=== PATIENT | female | born 1965 | race Caucasian/White ===

== ENCOUNTER 2025-07-04 05:45 | Observation (INO) | payer OTHER, MEDICAID ==
[2025-06-29 15:12] VITALS: BMI 24.1
[2025-07-04] MEDS ORDERED: Bupivacaine/Epinephrine 0.25% 30 ML VIAL ONE (06:35)
[2025-07-04] MEDS ORDERED: Thrombin 5000 UNITS/5 ML VIAL ONE (06:35)
[2025-07-04] MEDS ORDERED: PHENYLEPHRINE-NS 100 MCG/ML 10 ML SYRINGE ONE (06:44)
[2025-07-04] MEDS ORDERED: KETAMINE 100 MG/ML (5ML VIAL) ONE (06:44)
[2025-07-04] MEDS ORDERED: Glycopyrrolate 0.2 MG/ML 5 ML SYRINGE ONE (06:44)
[2025-07-04] MEDS ORDERED: PROPOFOL 40 ML ONE (06:44)
[2025-07-04] MEDS ORDERED: Phenylephrine 40 MG/NS 250 ML 250 ML ONE (06:45)
[2025-07-04] MEDS ORDERED: Rocuronium Bromide 10 MG/ML (10ML VIAL) ONE (06:45)
[2025-07-04] MEDS ORDERED: SUCCINYLCHOLINE/SOD CL,ISO/PF 200 MG/10 ML SYRINGE FS ONE (06:50)
[2025-07-04] MEDS ORDERED: Famotidine/PF 20 mg/2ml Vial ONE (07:00)
[2025-07-04] MEDS ORDERED: PROPOFOL 20 ML ONE (07:48)
[2025-07-04] MEDS ORDERED: HYDROcodone/Acetaminophen 10/325 mg Tablet PO PRN (08:46)
[2025-07-04] MEDS: Aspirin 81 mg Enteric Coated Tablet PO SCH ×3 (10:57→20:11)
[2025-07-04] MEDS: TETANUS, DIPHTHERIA TOX,ADULT (TDVAX) 0.5 ML VIAL IM ONE (10:58)
[2025-07-04] MEDS: HYDROcodone/Acetaminophen 10/325 mg Tablet PO PRN (11:34)
[2025-07-04] MEDS: PNEUMOC 20-VAL CONJ-DIP CRM/PF 0.5 ML SYRINGE IM ONE (11:36)
[2025-07-04] MEDS: Clindamycin/D5W 900 MG in Premix 1 BAG IVPB SCH (16:08)
[2025-07-05 08:12] VITALS: BP 120/62; TEMP 98.1
== END 2025-07-05 13:19 | disposition home or self-care (01) ==
LOC: CSHSDC 05:45 → CSHTELE 10:29
PROVIDERS: ADMIT Orthopaedic Surgery; ATTEND Orthopaedic Surgery
PROC: XRG New Technology, Joints, Fusion (ICD-10-PCS; principal; 2025-07-04)
DX: M46.1 Sacroiliitis, not elsewhere classified (principal); M53.3 Sacrococcygeal disorders, not elsewhere classified
CPT/HCPCS: 27279; 72202; 94760; 97116; J1100; J1308; J2250; J2270 ×2; J2704 ×2; J3010; J3490 ×2; C1889